=== PATIENT | male | born 1930 | race Two or more races ===

== ENCOUNTER 2018-08-08 10:48 | Emergency (ER) | payer MEDICARE ==
[2018-08-08 11:05] VITALS: BP 126/64
--- NOTE | 2018-08-08 11:32 | UC ---
FLU HPI - HPI Summary HPI Summary: 88-year-old male presents with 2 day history of nasal congestion, nasal discharge, mild sore throat, and occasionally productive cough for yellow sputum. States cough seems to worsen when he lies down at night. Denies fever , chills, ear pain, headache, dysphagia, chest pain, shortness of breath, abdominal pain, nausea, or vomiting. Patient states he is concerned he may have the flu. - History of Current Complaint Chief Complaint: UCRespiratory Stated Complaint: FLU SYMPTOMS Time Seen by Provider: 08/08/18 11:19 Hx Obtained From: Patient Pain Intensity: 5 - Allergy/Home Medications Allergies/Adverse Reactions: Allergies Allergy/AdvReac Type Severity Reaction Status Date / Time MS Ciprofloxacin [From Cipro] Allergy Hives Verified 03/17/16 09:03 PMH/Surg Hx/FS Hx/Imm Hx Endocrine History: Dyslipidemia Cardiovascular History: Hypertension - Surgical History Surgical History: Yes Surgery Procedure, Year, and Place[place] [facility] [place] [facility] [place] CYSTOSCOPY BILATERAL RETROGRADE, LEFT URETEROSCOPY, [place] URETERAL ST[place] [facility] [place] problem[place]had readiation. 2004 [place] [facility] [place] 2009 RIGHT CARPAL TUNNEL RELEASE, RIGHT RING FINGER TRIGGER [place] [facility] [place] - Family History Known Family History: Positive: Cardiac Disease, Other - Stroke - Social History Occupation: Retired Lives: With Family Alcohol Use: None Alcohol Amount: GLASS OF WINE ONCE A WEEK Substance Use Type: None Smoking Status (MU): Former Smoker Type: Cigarettes Have You Smoked in the Last Year: No When Did the Patient Quit Smoking/Using Tobacco: 45 YEARS AGO Review of Systems All Other Systems Reviewed And Are Negative: Yes Constitutional: Negative: Fever, Chills Eyes: Negative: Drainage, Eye Redness ENT: Positive: Sore Throat, Nasal Discharge, Sinus Congestion. Negative: Ear Ache, Sinus Pain/Tenderness Respiratory: Positive: Cough. Negative: Shortness Of Breath Cardiovascular: Negative: Palpitations, Chest Pain Gastrointestinal: Negative: Abdominal Pain, Vomiting, Diarrhea, Nausea Is Patient Immunocompromised?: No Physical Exam - Summary Physical Exam Summary: GENERAL APPEARANCE: Well developed, well nourished, alert and cooperative, and appears to be in no acute distress. EYES: Conjunctiva clear. No discharge. Vision is grossly intact. EARS: Bilateral external auditory canals with excessive cerumen. TMs not visualized. NOSE: Mild-moderate nasal congestion with some yellow nasal discharge. Sinuses nontender. THROAT: Oral cavity and pharynx normal. No inflammation, swelling, exudate, or lesions. NECK: Neck supple, non-tender without lymphadenopathy. CARDIAC: Normal S1 and S2. No S3, S4 or murmurs. Rhythm is regular. There is no peripheral edema, cyanosis or pallor. Extremities are warm and well perfused. Capillary refill is less than 2 seconds. LUNGS: Clear to auscultation and percussion without rales, rhonchi, wheezing or diminished breath sounds. ABDOMEN: Positive bowel sounds. Soft, nondistended, nontender. No guarding or rebound. No masses or hepatosplenomegally. MUSKULOSKELETAL: ROM intact to all extremities. No joint erythema or tenderness. Normal muscular development. Normal gait. SKIN: Skin normal color, texture and turgor with no lesions or eruptions. Triage Information Reviewed: Yes Vital Signs: Initial Vital Signs Temp 98.3 F 08/08/18 11:00 Pulse 78 08/08/18 11:00 Resp 18 08/08/18 11:00 BP 126/64 08/08/18 11:00 Pulse Ox 97 08/08/18 11:00 Vital Signs Reviewed: Yes Diagnostics - Laboratory Diagnostic Studies Completed/Ordered: Rapid flu negative. Flu Course/Dx - Course Course Of Treatment: 88-year-old male presents with 2 day history of nasal congestion, nasal discharge, mild sore throat, and occasionally productive cough for yellow sputum. States cough seems to worsen when he lies down at night. Denies fever, chills, ear pain, headache, dysphagia, chest pain, shortness of breath, abdominal pain, nausea, or vomiting. Patient states he is concerned he may have the flu. Afebrile. Vital signs stable. Exam revealed mild to moderate nasal congestion with mucosal erythema and mild edema, mild pharyngeal erythema with cobblestoning, clear bilateral breath sounds. Cough was not observed and remainder of exam was unremarkable. Rapid influenza was negative. Suspect viral upper respiratory infection. Recommend symptomatic treatment. Will provide prescriptions for fluticasone nasal spray and Tessalon Perles. He is to follow-up with his primary care provider in 5 days if symptoms persist. Warning symptoms were discussed with the patient. He verbalizes understanding and agrees with plan of care. - Differential Dx/Diagnosis Differential Diagnosis/HQI/PQRI: Bronchitis, Influenza, Pneumonia, Upper Respiratory Infection Provider Diagnosis: Viral URI with cough Discharge - Sign-Out/Discharge Documenting (check all that apply): Patient Departure All imaging exams completed and their final reports reviewed: No Studies - Discharge Plan Condition: Stable Disposition: HOME Prescriptions: Benzonatate CAP* [Tessalon 100 MG CAP*] 100 mg PO TID PRN #21 cap PRN Reason: Cough Fluticasone NASAL SPRAY 50MCG* [Flonase NASAL SPRAY 50MCG*] 2 spray BOTH NARES DAILY #1 btl Patient Education Materials: Upper Respiratory Infection (ED) Referrals: Mahamed Doty MD [Primary Care Provider] - 5 Days Additional Instructions: The rapid flu test performed in the clinic today was negative for the flu. Your history and exam are consistent with a viral upper respiratory infection. Viral infections do not respond to antibiotics and are limited to the treatment of symptoms. Viral infections typically run their course in 7-10 days. Drink plenty of fluids to avoid dehydration especially if you are running any fever. Use fluticasone (Flonase) nasal spray 2 sprays each nostril once daily. Take Tessalon Perles 1 capsule every 8 hours as needed for cough. Take over the counter acetaminophen (Tylenol) according to directions as needed for pain or fever. Use salt water gargles several times a day if you have a sore throat. Follow up with your primary care provider in 5 days if symptoms persist. Seek immediate medical attention in the emergency room if you have fever greater than 100.5 F despite taking acetaminophen or ibuprofen, have chest pain , difficulty breathing, are unable to swallow, or have any worsening of symptoms. - Billing Disposition and Condition Condition: STABLE Disposition: Home
== END 2018-08-08 12:15 | disposition home or self-care (01) ==
LOC: UCEAST 10:48
DX: J06.9 Acute upper respiratory infection, unspecified (principal); R05 Cough; I10 Essential (primary) hypertension; Z88.1 Allergy status to other antibiotic agents; Z87.891 Personal history of nicotine dependence
CPT/HCPCS: 99212; G0463

== ENCOUNTER 2018-10-28 19:26 | Inpatient (IN) | payer MEDICARE ==
[2018-10-28] MEDS ORDERED: Furosemide IV* 10 MG/ML VIAL (40 MG) IV ONE (19:40)
--- OUTSIDE RECORDS SUMMARY | 2018-10-28 19:47 | XMS REPORT | Continuity of Care Document ---
:1930 External Reference #:[id number] Author Name YOSHI Farrar Address [address] [place] [address] Care Team Providers Name Role Phone Mahamed Doty MD Care Team Information Contract Accountant Unavailable Mahamed Doty MD Primary Care Physician Unavailable Payers Date Identification Numbers Payment Provider Subscriber Effective: Policy Number: [id number] Medicare [place] Fermin Mercer 1995 PayID: [id number] [address] [place] [address] Policy Number: [id number] [address] [place] [address] Health Care Options Fermin Mercer PayID: [id number] [address] [place] [address] Advance Directives Description No Information Available Problems Date Description Provider Status Onset: 10/06/2018 Hypothyroidism Mahamed Doty M.D. Active Onset: 03/16/2017 Mixed hyperlipidemia Mahamed Doty M.D. Active Onset: 03/16/2017 Essential hypertension Mahamed Doty M.D. Active Family History Date Family Member(s) Observation Comments First Brother Heart Disease Social History Type Date Description Comments Sex Unknown Marital Status . 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 Tobacco Use Start: Unknown Nonsmoker Allergies, Adverse Reactions, Alerts Description No Known Drug Allergies Medications Medication Date Status Form Strength Qnty SIG Indications Ordering Provider Levothyroxine 10/07/ Active Tablets 25mcg 90tab 1 by Mahamed Olivas 2018 s mouth Darlow, every M.D. day Cyclobenzaprine 07/16/ Active Tablets 5mg 20tab 1by M54.5 Pamela HCL 2016 s mouth at Jose, bedtime CONTACT [employer] SU[employer] as needed Refresh Optive 07/16/ Active Solution 0.5-0.9% 1box 1 qtt in 2016 each eye Jose, prn for [employer] dryness Mirtazapine 05/11/ Active Tablets 15mg 30tab 1 by G47.00 Mahamed A. 2016 s mouth at Darlow, bedtime M.D. Iron / Active Tablets 325(65Fe) 1 tab by Unknown 0000 mg mouth once a day Centrum Silver / Active Tablets one by Unknown 0000 mouth Klor-Con / Active Tablets ER 8Meq 450ta Take 5 Mahamed A. 0000 bs Tablets Darlow, By Mouth M.D. Daily Amlodipine / Active Tablets 10mg 90tab Take 1 Mahamed A. Besylate 0000 s Tablet Darlow, By Mouth M.D. Daily Atorvastatin / Active Tablets 20mg 90tab take 1 Mahamed A. Calcium 0000 s tablet Darlow, by mouth M.D. every day Benzonatate / Active Capsules 100mg take one Unknown 0000 capsule by mouth three times a day as needed for cough Fluticasone / Active Suspension 50mcg/Act 2 sprays Unknown Propionate 0000 each nostril every night at bedtime Cefuroxime Axetil 08/11/ Hx Tablets 500mg 20tab 1 by J20.9 Mahamed A. 2018 - s mouth Darlow, 08/21/ twice a M.D. 2019 day Mirtazapine 05/11/ Hx Tablets 7.5mg 30tab /2 G47.00 Mahamed A. 2016 - s tablet Darlow, 05/11/ by mouth M.D. 2016 every night Mirtazapine 02/11/ Hx Tablets 7.5mg 30tab /2 G47.00 Radha 2017 - s tablet Bruce, 03/16/ by mouth [employer]CT [employer] 2017 every night Immunizations CPT Code Status Date Vaccine Lot # [id number] Given 06/03/2018 High-Dose, Influenza Virus Vacccine-fluzone 65 and [id number] older [id number] Given 05/11/2017 High-Dose, Influenza Virus Vacccine-fluzone 65 and [id number] older Vital Signs Date Vital Result Comment 10/21/2018 3:37pm BP Systolic 158 mmHg BP Diastolic 80 mmHg Heart Rate 100 /min Body Temperature 97.5 F Respiratory Rate 22 /min O2 % BldC Oximetry 97 % Ra Weight 164.00 lb 10/06/2018 1:18pm BP Systolic 136 mmHg BP Diastolic 82 mmHg Heart Rate 60 /min Body Temperature 97.5 F Respiratory Rate 16 /min Height 64.5 inches 5'4.50" Weight 159.00 lb BMI (Body Mass Index) 26.9 kg/m2 08/11/2018 8:49am BP Systolic 162 mmHg BP Diastolic 80 mmHg Heart Rate 78 /min Body Temperature 97.7 F Respiratory Rate 18 /min O2 % BldC Oximetry 98 % Height 64.5 inches 5'4.50" Weight 151.00 lb BMI (Body Mass Index) 25.5 kg/m2 11/26/2017 6:29pm BP Systolic 134 mmHg BP Diastolic 80 mmHg Heart Rate 68 /min Body Temperature 98.2 F Respiratory Rate 16 /min Height 64.5 inches 5'4.50" Weight 156.00 lb BMI (Body Mass Index) 26.4 kg/m2 11/23/2017 1:23pm BP Systolic 140 mmHg BP Diastolic 80 mmHg Heart Rate 72 /min Body Temperature 97.2 F Respiratory Rate 16 /min Height 64.5 inches 5'4.50" Weight 156.00 lb BMI (Body Mass Index) 26.4 kg/m2 07/16/2017 2:45pm BP Systolic 152 mmHg BP Diastolic 84 mmHg Heart Rate 60 /min Body Temperature 97.9 F Respiratory Rate 16 /min Height 64.5 inches 5'4.50" Weight 156.38 lb BMI (Body Mass Index) 26.4 kg/m2 04/29/2017 1:19pm BP Systolic 142 mmHg BP Diastolic 76 mmHg Heart Rate 56 /min Body Temperature 98.0 F Respiratory Rate 16 /min Height 64.5 inches 5'4.50" Weight 162.50 lb BMI (Body Mass Index) 27.5 kg/m2 03/16/2017 2:02pm BP Systolic 130 mmHg BP Diastolic 80 mmHg Heart Rate 60 /min Body Temperature 97.8 F Respiratory Rate 16 /min Height 64.5 inches 5'4.50" Weight 161.00 lb BMI (Body Mass Index) 27.2 kg/m2 02/11/2017 1:51pm BP Systolic 142 mmHg BP Diastolic 84 mmHg Heart Rate 84 /min Body Temperature 98.6 F Height 64.5 inches 5'4.50" Weight 162.38 lb BMI (Body Mass Index) 27.4 kg/m2 Results Test Date Facility Test Result H/L Range Note Laboratory test 10/21/2018 [facility] Medicine Brain Natural 349 pg/mL High < 100 finding (607)- - Peptide Laboratory test 10/21/2018 [facility] C-Reactive <pending> finding [address] [facility] Protein, [place] [address] (607)- - Lipid Profile 10/06/2018 Philipp Yolis ([facility]) Cholesterol 145 mg/dL 120- 200 Triglycerides 48 mg/dL 30-200 HDL Cholesterol 54 mg/dL 30-70 LDL (Calculated) 81 CALC 0-129 VLDL Cholesterol 10 mg/dL 0-50 HDL Risk Factor 2.7 CALC 0.0-4.4 Comprehensive Metabolic 10/06/2018 Philipp Yolis ([facility]) Sodium 140 mEq/L 134-149 Prof Potassium 4.0 mEq/L 3.6-5.5 Chloride 102 mEq/L 94-112 Carbon Dioxide 27 mEq/L 21-32 Glucose 95 mg/dL 70-105 BUN 15 mg/dL 6-26 Creatinine 0.8 mg/dL 0.6-1.4 BUN/Creat Ratio 18.8 CALC 8.0-36.0 Calcium 8.6 mg/dL 8.6-10.2 Total Protein 6.8 g/dL 6.4-8.3 Albumin 4.5 g/dL 3.8-5.5 Globulin 2.3 g/dL 2.0-4.8 A/G Ratio 2.0 CALC 0.6-2.3 Alk. Phosphatase 66 U/L 22-95 Alt (SGPT) 21 U/L 7-35 Ast (Sgot) 24 U/L 5-34 Total Bilirubin 1.1 mg/dL 0.2-1.3 GFR Non- >60 ml/min/1.73m^ >=60 GFR >60 ml/min/1.73m^ >=60 Laboratory test 10/06/2018 Philipp Yolis ([facility]) TSH 11.85 mIU/L High 0.50 -6.00 1 finding PSA 0.2 ng/mL 0.0-4.0 CBC Electronic [facility] 10/06/2018 Segal Yolis ([facility]) WBC 4.9 x10^3/UL 4.0- 10.0 RBC 3.87 x10^6/UL Low 3.93-6.00 HGB 12.0 g/dL 12.0-17.0 HCT 37 % 35-50 MCV 95.1 fL High 80.0-95.0 MCH 31.0 pg 25.6-32.2 MCHC 32.6 g/dL 32.2-36.0 RDW-CV 14.8 % High 11.6-14.4 PLT 169 x10^3/UL 163-400 MPV 11.3 fL 9.4-12.4 Srinivas# 3.32 x10^3/UL 1.56-6.13 Lymph# 1.00 x10^3/UL Low 1.18-3.74 Norman# 0.35 x10^3/UL 0.24-0.82 Eos # 0.2 x10^3/UL 0.0-0.5 Baso # 0.04 x10^3/UL 0.01-0.08 Srinivas% 67.9 % 34.0-70.0 Lymph % 20.4 % 20.0-52.0 Norman% 7.2 % 5.0-12.0 Eos% 3.7 % 0.7-7.0 Baso% 0.8 % 0.1-1.2 Laboratory test 10/06/2018 Segal Yolis ([facility]) Free T4 1.00 ng/dL 0.75- 1.54 finding Rapid Influenza A 08/08/2018 [facility] [place] Influenza A NEGATIVE Negative 2 & B Molecular Molecular Influenza B Molecular NEGATIVE Negative Laboratory test finding 04/26/2018 [facility] [place] PSA Diagnostic 0.332 ng/mL N 0- 4.0 3 Creatinine 04/26/2018 [facility] [place] Creatinine 1.09 mg/dL N 0.67-1.17 Egfr Non- 63.8 >60 Egfr 77.3 >60 4 Laboratory test 04/26/2018 [facility] [place] Blood Urea 17 mg/dL N 6-24 finding Nitrogen BUN Laboratory test 11/23/2017 Segal Yolis ([facility]) TSH 12.15 mIU/L High 0.50 -6.00 5 finding Comprehensive 07/16/2017 Segal Yolis ([facility]) Sodium 139 mEq/L 134-149 Metabolic Prof Potassium 3.6 mEq/L 3.6-5.5 Chloride 105 mEq/L 94-112 Carbon Dioxide 27 mEq/L 21-32 Glucose 110 mg/dL High 70-105 6 BUN 19 mg/dL 6-26 Creatinine 0.8 mg/dL 0.6-1.4 BUN/Creat Ratio 23.8 CALC 8.0-36.0 Calcium 9.3 mg/dL 8.6-10.2 Total Protein 7.2 g/dL 6.4-8.3 Albumin 4.6 g/dL 3.8-5.5 Globulin 2.6 g/dL 2.0-4.8 A/G Ratio 1.8 CALC 0.6-2.3 Alk. Phosphatase 79 U/L 22-95 Alt (SGPT) 10 U/L 7-35 Ast (Sgot) 15 U/L 5-34 Total Bilirubin 0.9 mg/dL 0.2-1.3 GFR Non- >60 ml/min/1.73m^ >=60 GFR >60 ml/min/1.73m^ >=60 Laboratory test 07/16/2017 Philipp Lagos ([facility]) TSH 11.87 mIU/L High 0.50 -6.00 7 finding Free T4 0.82 ng/dL 0.75-1.54 Complete Blood Count 07/16/2017 Philipp Lagos ([facility]) WBC 5.5 x10^3/UL 3.6-9.6 RBC 4.28 x10^6/UL 3.90-5.70 HGB 13.3 g/dL 12.1-17.2 HCT 40 % 36-50 MCV 92.0 fL 82.2-97.4 MCH 31.1 pg 27.6-33.3 MCHC 33.6 g/dL 33.0-35.5 RDW 14.8 % High 11.6-13.7 PLT 220 x10^3/UL 150-400 MPV 7.9 fL 7.4-10.4 Gran # 4.0 x10^3/UL 1.5-7.2 Lymph# 1.3 x10^3/UL 0.7-4.9 Norman# 0.2 x10^3/UL 0.1-0.9 Gran % 71.7 % 42.2-75.2 Lymph % 23.9 % 20.5-51.1 Norman% 4.4 % 1.7-9.3 Laboratory test finding 04/29/2017 Philipp Lagos ([facility]) PSA 0.2 ng/mL 0.0-4.0 Comprehensive Metabolic 03/16/2017 Philipp Lagos ([facility]) Sodium 141 mEq/L 134-149 Prof Potassium 3.9 mEq/L 3.6-5.5 Chloride 100 mEq/L 94-112 Carbon Dioxide 25 mEq/L 21-32 Glucose 131 mg/dL High 70-105 8 BUN 19 mg/dL 6-26 Creatinine 0.9 mg/dL 0.6-1.4 BUN/Creat Ratio 21.1 CALC 8.0-36.0 Calcium 9.2 mg/dL 8.6-10.2 Total Protein 6.6 g/dL 6.4-8.3 Albumin 4.6 g/dL 3.8-5.5 Globulin 2.0 g/dL 2.0-4.8 A/G Ratio 2.3 CALC 0.6-2.3 Alk. Phosphatase 56 U/L 22-95 Alt (SGPT) 9 U/L 7-35 Ast (Sgot) 16 U/L 5-34 Total Bilirubin 0.6 mg/dL 0.2-1.3 GFR Non- >60 ml/min/1.73m^ >=60 GFR >60 ml/min/1.73m^ >=60 Lipid Profile 03/16/2017 Philipp Lagos ([facility]) Cholesterol 149 mg/dL 120- 200 Triglycerides 97 mg/dL 30-200 HDL Cholesterol 44 mg/dL 30-70 LDL (Calculated) 86 CALC 0-129 VLDL Cholesterol 19 mg/dL 0-50 HDL Risk Factor 3.4 CALC 0.0-4.4 Complete Blood Count 03/16/2017 Philipp Lagos ([facility]) WBC 5.0 x10^3/UL 3.6-9.6 RBC 4.13 x10^6/UL 3.90-5.70 HGB 12.9 g/dL 12.1-17.2 HCT 38 % 36-50 MCV 92.0 fL 82.2-97.4 MCH 31.2 pg 27.6-33.3 MCHC 34.1 g/dL 33.0-35.5 RDW 15.0 % High 11.6-13.7 PLT 189 x10^3/UL 150-400 MPV 7.4 fL 7.4-10.4 Gran # 3.5 x10^3/UL 1.5-7.2 Lymph# 1.3 x10^3/UL 0.7-4.9 Norman# 0.2 x10^3/UL 0.1-0.9 Gran % 68.1 % 42.2-75.2 Lymph % 26.5 % 20.5-51.1 Norman% 5.4 % 1.7-9.3 1 RESULTS VERIFIED BY REPEAT ANALYSIS 2 Lye Treater: [id number] 3 Serum levels of PSA measured using the [employer] DXI Hybritech immunoassay should not be interpreted as absolute evidence of the presence or absence of disease. The PSA value should be used in conjunction with other pertinent clinical diagnostic procedures. A PSA value in the range of 0.1 to 0.6 ng/ml is indeterminate if being used as an indicator of recurrent or residual disease. The values obtained with different assay methods or kits cannot be used interchangeably. 4 Because ethnic data is not always readily available, this report includes an eGFR for both -Americans and non- Americans. The National Kidney Disease Education Program (NKDEP) does not endorse the use of the MDRD equation for patients that are not between the ages of 18 and 70, are , have extremes of body size, muscle mass, or nutritional status, or are non- or non-. According to the National Kidney Foundation, irrespective of diagnosis, the stage of the disease is based on the level of kidney function: Stage Description GFR(mL/min/1.73 m(2)) 1 Kidney damage with normal or decreased GFR 90 2 Kidney damage with mild decrease in GFR 60-89 3 Moderate decrease in GFR 30-59 4 Severe decrease in GFR 15-29 5 Kidney failure <15 (or dialysis) 5 RESULTS VERIFIED BY REPEAT ANALYSIS 6 NON-FASTING 7 RESULTS VERIFIED BY REPEAT ANALYSIS 8 RESULTS VERIFIED BY REPEAT ANALYSIS Procedures Date Code Description Status 08/11/2018 84906 Pulse Oximetry Completed 08/10/2012 37897114 Colonoscopy Completed Encounters Type Date Location Provider Dx Diagnosis Office Visit 08/11/2018 [facility] Office Mahamed Doty, J20.9 Acute bronchitis, 9:10a M.D. unspecified Office Visit 11/26/2017 [facility] Mahamed Doty, E03.9 Hypothyroidism, 6:40p M.D. unspecified Office Visit 11/23/2017 [facility] Mahamed Doty, E03.9 Hypothyroidism, 1:40p M.D. unspecified Office Visit 07/16/2017 [facility] Pamela Garcia, [employer]TA[employer]PER[employer]OR M54.5 Low back pain 2:30p R63.4 Abnormal weight loss Office Visit 03/16/2017 2:30p [facility] Mahamed Pulliam [id number] Essential ( primary) Lashonda Doty hypertension E78.2 Mixed hyperlipidemia Office Visit 02/11/2017 2:00p [facility] Office Radha C61 Malignant Bruce, YOSHI neoplasm of prostate F41.9 Anxiety disorder, unspecified G47.00 Insomnia, unspecified J30.9 Allergic rhinitis, unspecified R35.0 Frequency of micturition R60.0 Localized edema R06.83 Snoring Plan of Treatment 10/21/2018 - Radha Barrera, FNPR60.0 Localized edemaComments:STOP the LEVOTHYROXINE -- consider this on hold only, I expect to restart promptlyI will call in 24-48 hours with results, you will know by then if the swelling improved , and we will shbxtyuQ02.9 Hypothyroidism, [id number] Palpitations
--- OUTSIDE RECORDS SUMMARY | 2018-10-28 19:47 | XMS REPORT | Continuity of Care Document ---
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 Active Onset: 03/16/2017 Mixed hyperlipidemia Mahamed Doty M.D. Active Onset: 10/06/2018 Hypothyroidism Mahamed Doty M.D. Active Family History Date Family Member(s) Observation Comments First Brother Heart Disease Social History Type Date Description Comments Sex Unknown Marital Status . 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 Tobacco Use Start: Unknown Nonsmoker Allergies, Adverse Reactions, Alerts Description No Known Drug Allergies Medications Medication Date Status Form Strength Qnty SIG Indications Ordering Provider Levothyroxine 10/07/ Active Tablets 25mcg 90tab 1 by Mahamed Olivas 2018 s mouth Darlow, every M.D. day Cyclobenzaprine 07/16/ Active Tablets 5mg 20tab 1by M54.5 Pamela HCL 2016 s mouth at Jose, bedtime ORAL PATHOLOGIST as needed Refresh Optive 07/16/ Active Solution 0.5-0.9% 1box 1 qtt in 2016 each eye Jose, prn for ORAL PATHOLOGIST dryness Mirtazapine 05/11/ Active Tablets 15mg 30tab [...] - s tablet Bruce, 03/16/ by mouth ORAL PATHOLOGIST 2017 every night Immunizations CPT Code Status Date Vaccine Lot # [id number] Given 06/03/2018 High-Dose, Influenza Virus Vacccine-fluzone 65 and [id number] older [id number] Given 05/11/2017 High-Dose, Influenza Virus Vacccine-fluzone 65 and [id number] older Vital Signs Date Vital Result Comment 10/28/2018 6:17pm BP Systolic 152 mmHg BP Diastolic 72 mmHg Heart Rate 68 /min Body Temperature 96.7 F Respiratory Rate 16 /min O2 % BldC Oximetry 98 % Weight 161.00 lb 10/21/2018 3:37pm BP Systolic 158 mmHg BP [...] Result H/L Range Note Laboratory test 10/21/2018 [facility] Brain Natural 349 pg/mL High < 100 finding (607)- - Peptide Laboratory test 10/21/2018 [facility] C-Reactive 4.9 mg/L 0.0-4.9 1 finding [address] [facility], [place] [address] Quant (607)- - Comprehensive 10/21/2018 Philipp Yolis ([facility]) Sodium 141 mEq/L 134-149 Metabolic Prof Potassium 3.7 mEq/L 3.6-5.5 Chloride 102 mEq/L 94-112 Carbon Dioxide 25 mEq/L 21-32 Glucose 129 mg/dL High 70-105 BUN 13 mg/dL 6-26 Creatinine 0.8 mg/dL 0.6-1.4 BUN/Creat Ratio 16.3 CALC 8.0-36.0 Calcium 8.6 mg/dL 8.6-10.2 Total Protein 6.6 g/dL 6.4-8.3 Albumin 4.5 g/dL 3.8-5.5 Globulin 2.1 g/dL 2.0-4.8 A/G Ratio 2.1 CALC 0.6-2.3 Alk. Phosphatase 76 U/L 22-95 Alt (SGPT) 35 U/L 7-35 Ast (Sgot) 28 U/L 5-34 Total Bilirubin 0.8 mg/dL 0.2-1.3 GFR Non- >60 ml/min/1.73m^ >=60 GFR >60 ml/min/1.73m^ >=60 Lipid Profile 10/06/2018 Philipp Yolis ([facility]) Cholesterol 145 mg/dL 120- 200 Triglycerides 48 mg/dL 30-200 HDL Cholesterol 54 mg/dL 30-70 LDL (Calculated) 81 CALC 0-129 VLDL Cholesterol 10 mg/dL 0-50 HDL Risk Factor 2.7 CALC 0.0-4.4 Comprehensive Metabolic 10/06/2018 Philipp Yolis ([facility]) Sodium 140 mEq/L 134-149 Prof Potassium 4.0 [...] GFR >60 ml/min/1.73m^ >=60 Laboratory test 10/06/2018 Segal Yolis ([facility]) TSH 11.85 mIU/L High 0.50 -6.00 2 finding PSA 0.2 ng/mL 0.0-4.0 CBC Electronic a 10/06/2018 Segal Yolis ([facility]) WBC 4.9 x10^3/UL 4.0- 10.0 RBC 3.87 x10^6/UL Low 3.93-6.00 HGB 12.0 g/dL 12.0-17.0 HCT 37 % 35-50 MCV 95.1 fL High 80.0-95.0 MCH 31.0 pg 25.6-32.2 MCHC 32.6 g/dL 32.2-36.0 RDW-CV 14.8 % High 11.6-14.4 PLT 169 x10^3/UL 163-400 MPV 11.3 fL 9.4-12.4 Srinivas# 3.32 x10^3/UL 1.56-6.13 Lymph# 1.00 x10^3/UL Low 1.18-3.74 [place]# 0.35 x10^3/UL 0.24-0.82 Eos # 0.2 x10^3/UL 0.0-0.5 Baso # 0.04 x10^3/UL 0.01-0.08 Srinivas% 67.9 % 34.0-70.0 Lymph % 20.4 % 20.0-52.0 [place]% 7.2 % 5.0-12.0 Eos% 3.7 % 0.7-7.0 Baso% 0.8 % 0.1-1.2 Laboratory test 10/06/2018 Segal Yolis ([facility]) Free T4 1.00 ng/dL 0.75- 1.54 finding Rapid Influenza A 08/08/2018 [facility] [place] Influenza A NEGATIVE Negative 3 & B Molecular Molecular Influenza B Molecular NEGATIVE Negative Laboratory test finding 04/26/2018 [facility] PSA Diagnostic 0.332 ng/mL N 0- 4.0 4 Creatinine 04/26/2018 [facility] Creatinine 1.09 mg/dL N 0.67-1.17 Egfr Non- 63.8 >60 Egfr 77.3 >60 5 Laboratory test 04/26/2018 [facility] Blood Urea 17 mg/dL N 6-24 finding Nitrogen BUN Laboratory test 11/23/2017 Segal Yolis (a) TSH 12.15 mIU/L High 0.50 -6.00 6 finding Comprehensive 07/16/2017 Segal Yolis ([facility]) Sodium 139 mEq/L 134-149 Metabolic Prof Potassium 3.6 mEq/L 3.6-5.5 Chloride 105 mEq/L 94-112 Carbon Dioxide 27 mEq/L 21-32 Glucose 110 mg/dL High 70-105 7 BUN 19 mg/dL 6-26 Creatinine 0.8 mg/dL [...] >60 ml/min/1.73m^ >=60 Laboratory test 07/16/2017 Philipp Yolis ([facility]) TSH 11.87 mIU/L High 0.50 -6.00 8 finding Free T4 0.82 ng/dL 0.75-1.54 Complete Blood Count 07/16/2017 Philipp Yolis ([facility]) WBC 5.5 x10^3/UL 3.6-9.6 RBC 4.28 x10^6/UL 3.90-5.70 HGB 13.3 g/dL 12.1-17.2 HCT 40 % 36-50 MCV 92.0 fL 82.2-97.4 MCH 31.1 pg 27.6-33.3 MCHC 33.6 g/dL 33.0-35.5 RDW 14.8 % High 11.6-13.7 PLT 220 x10^3/UL 150-400 MPV 7.9 fL 7.4-10.4 Gran # 4.0 x10^3/UL 1.5-7.2 Lymph# 1.3 x10^3/UL 0.7-4.9 [place]# 0.2 x10^3/UL 0.1-0.9 Gran % 71.7 % 42.2-75.2 Lymph % 23.9 % 20.5-51.1 [place]% 4.4 % 1.7-9.3 Laboratory test finding 04/29/2017 Philipp Yolis ([facility]) PSA 0.2 ng/mL 0.0-4.0 Comprehensive Metabolic 03/16/2017 Philipp Yolis ([facility]) Sodium 141 mEq/L 134-149 Prof Potassium 3.9 mEq/L 3.6-5.5 Chloride 100 mEq/L 94-112 Carbon Dioxide 25 mEq/L 21-32 Glucose 131 mg/dL High 70-105 9 BUN 19 mg/dL 6-26 Creatinine 0.9 mg/dL [...] ml/min/1.73m^ >=60 Lipid Profile 03/16/2017 Philipp Lagos (a) Cholesterol 149 mg/dL 120- 200 Triglycerides 97 mg/dL 30-200 HDL Cholesterol 44 mg/dL 30-70 LDL (Calculated) 86 CALC 0-129 VLDL Cholesterol 19 mg/dL 0-50 HDL Risk Factor 3.4 CALC 0.0-4.4 Complete Blood Count 03/16/2017 Philipp Lagos (a) WBC 5.0 x10^3/UL 3.6-9.6 RBC 4.13 x10^6/UL 3.90-5.70 HGB 12.9 g/dL 12.1-17.2 HCT 38 % 36-50 MCV 92.0 fL 82.2-97.4 MCH 31.2 pg 27.6-33.3 MCHC 34.1 g/dL 33.0-35.5 RDW 15.0 % High 11.6-13.7 PLT 189 x10^3/UL 150-400 MPV 7.4 fL 7.4-10.4 Gran # 3.5 x10^3/UL 1.5-7.2 Lymph# 1.3 x10^3/UL 0.7-4.9 [place]# 0.2 x10^3/UL 0.1-0.9 Gran % 68.1 % 42.2-75.2 Lymph % 26.5 % 20.5-51.1 [place]% 5.4 % 1.7-9.3 1 1 SST 2 RESULTS VERIFIED BY REPEAT ANALYSIS 3 Cut Out Operator: [id number] 4 Serum levels of PSA measured using the [employer] DXI Hybritech immunoassay should not be interpreted [...] methods or kits cannot be used interchangeably. 5 Because ethnic data is not always readily [...] 15-29 5 Kidney failure <15 (or dialysis) 6 RESULTS VERIFIED BY REPEAT ANALYSIS 7 NON-FASTING 8 RESULTS VERIFIED BY REPEAT ANALYSIS 9 RESULTS VERIFIED BY REPEAT ANALYSIS Procedures Date Code Description Status 10/28/2018 74889 Rhythm ECG W/Interpretation & Report Completed 08/11/2018 97143 Pulse Oximetry Completed 08/10/2012 76409869 Colonoscopy Completed Encounters Type Date Location Provider Dx Diagnosis Office Visit 10/21/2018 [facility] Radha Barrera, R60.0 Localized edema 3:30p ORAL PATHOLOGIST E03.9 Hypothyroidism, unspecified R00.2 Palpitations Office Visit 08/11/2018 9:10a [facility] Mahamed Pulliam J20.9 Acute bronchitisLalitha M.D. unspecified Office Visit 11/26/2017 6:40p [facility] Mahamed Pulliam E03.9 HypothyroidismLalitha M.D. unspecified Office Visit 11/23/2017 1:40p [facility] Mahamed Pulliam E03.9 Lalitha Eaton M.D. unspecified Office Visit 07/16/2017 2:30p [facility] Pamela Garcia, M54.5 Low back pain ORAL PATHOLOGIST R63.4 Abnormal weight loss Office Visit 03/16/2017 2:30p [facility] Mahamed Pulliam I10 Essential ( primary) Darlow, M.D. hypertension E78.2 Mixed hyperlipidemia Office Visit 02/11/2017 2:00p [facility] Radha C61 Malignant Bruce, ORAL PATHOLOGIST neoplasm of prostate F41.9 Anxiety disorder, unspecified G47.00 Insomnia, unspecified J30.9 Allergic rhinitis, unspecified R35.0 Frequency of micturition R60.0 Localized edema R06.83 Snoring Plan of Treatment 10/28/2018 - Lesia Aldridge, PAI50.9 Heart failure, unspecifiedComments:Patient to go to the ER via ambulance for heart failure management. Most recent BNP of 349 on 10/21/18. EKG in office shows Atrial Fibrillation which has not been noted in patient prior. Clinical picture and history correlate with heart failure. Dr. Doty consulted and gave report to Dr. Erickson of [facility] [place].R60.0 Localized edemaComments:see above. Patient sent to the ER.
--- NOTE | 2018-10-28 19:49 | ED ---
HPI Cardiac - History of Current Complaint Chief Complaint: EDGeneral Stated Complaint: POSS CHF PER EMS Time Seen by Provider: 10/28/18 19:32 Pain Intensity: 0 - Allergy/Home Medications Allergies/Adverse Reactions: Allergies Allergy/AdvReac Type Severity Reaction Status Date / Time ciprofloxacin Allergy Hives Verified 10/28/18 19:39 PMH/Surg Hx/FS Hx/Imm Hx Endocrine/Hematology History: Denies: Hx Diabetes, Hx Thyroid Disease Cardiovascular History: Reports: Hx Hypertension - CONTROL WITH MED, Other Cardiovascular Problems/Disorders - CHOLESTEROL CONTROL WITH MEDS Respiratory History: Reports: Hx Asthma - HX OF - NO PROBLEMS Denies: Hx Chronic Obstructive Pulmonary Disease (COPD) GI History: Denies: Hx Ulcer History: Reports: Other Problems/Disorders - URETHRAL STRICTURE Musculoskeletal History: Reports: Hx Arthritis, Other Musculoskeletal History - LEFT SHOULDER PAIN Denies: Hx Scoliosis Sensory History: Reports: Hx Contacts or Glasses - READING GLASSES Denies: Hx Hearing Aid Opthamlomology History: Reports: Hx Contacts or Glasses - READING GLASSES Neurological History: Denies: Hx Headaches, Other Neuro Impairments/Disorders Psychiatric History: Reports: Hx Anxiety - occasional - Cancer History Cancer Type, Location and Year: prostate ca - Surgical History Surgery Procedure, Year, and Place: [place] [facility] [place] [facility] [place] CYSTOSCOPY BILATERAL RETROGRADE, LEFT URETEROSCOPY, LEFT URETERAL STENT INSERTION, [facility] [place] problem[place]had readiation. 2004 LEFT KNEE ARTHROSCOPY, [facility] [place]. 2009 RIGHT CARPAL TUNNEL RELEASE, RIGHT RING FINGER TRIGGER RELEASE, [facility] [place] Hx Anesthesia Reactions: No Infectious Disease History: No Infectious Disease History: Denies: Hx Clostridium Difficile, Hx Hepatitis, Hx Human Immunodeficiency Virus (HIV), Hx of Known/Suspected MRSA, Hx Shingles, Hx Tuberculosis, Hx Known/ Suspected VRE, Hx Known/Suspected VRSA, History Other Infectious Disease, Traveled Outside the [place] in Last 30 Days - Family History Known Family History: Positive: Cardiac Disease, Other - Stroke - Social History Alcohol Use: Weekly Alcohol Amount: GLASS OF WINE ONCE A WEEK Substance Use Type: Reports: None Smoking Status (MU): Former Smoker Type: Cigarettes Have You Smoked in the Last Year: No Physical Exam Vital Signs On Initial Exam: Initial Vitals Temp Pulse Resp BP Pulse Ox 99.1 F 83 18 170/101 96 10/28/18 19:30 10/28/18 19:30 10/28/18 19:30 10/28/18 19:30 10/28/18 19:30 Diagnostics - Vital Signs Vital Signs Temp Pulse Resp BP Pulse Ox 10/28/18 19:30 99.1 F 83 18 170/101 96 - Laboratory Lab Statement: Any lab studies that have been ordered have been reviewed, and results considered in the medical decision making process. Discharge - Discharge Plan Referrals: Mahamed Doty MD [Primary Care Provider] - - Attestation Statements Document Initiated by Scribe: Yes
[2018-10-28 19:58] LABS: ABS Basophils 0 10^3/ul (0-0.2); ABS Eosinophils 0.3 10^3/ul (0-0.6); ABS Lymphocytes 1.1 10^3/ul (1.0-4.8); ABS Monocytes 0.4 10^3/ul (0-0.8); ABS Neutrophils 3.2 10^3/ul (1.5-7.7); ABS Nucleated RBC 0 10^3/ul; Eosinophil % 5.3 %; Hematocrit 36 % (36-46); Lymphocyte % 21.6 %; Mean Corpuscular HGB Conc 33 g/dL (31-36); Mean Corpuscular Hemoglobin 31 pg (27-31); Mean Corpuscular Volume 93 fL (80-94); Mean Platelet Volume 9.1 fL (7.4-10.4); Nucleated Red Blood Cells % 0; Platelet Count 168 10^3/uL (150-450); Red Blood Count 3.86 10^6 /uL (4.18-5.48); Red Cell Distribution Width 16 % (10.5-15)
--- NOTE | 2018-10-28 20:00 | ED ---
Lower Extremity - HPI Summary HPI Summary: This patient is an 88 year old M brought in by ambulance to [facility] with a chief complaint of LE swelling bilaterally since 2 weeks ago. He has seen his PCP, Dr. Mahamed Doty, for the swelling in his LE bilaterally and crackles in lower lungs. Dr. Doty ran bloodwork and found irregularities, so he referred the patient to a machine taper. Patient was unable to schedule an appointment with the machine taper within the month, so he became scared when his legs felt worse at home. Patient reports pain in LE when ambulating and SOB. Patient denies chest pain. He has no PMHx of CHF. - History of Current Complaint Chief Complaint: EDGeneral Stated Complaint: POSS CHF PER EMS Time Seen by Provider: 10/28/18 19:32 Hx Obtained From: Patient Onset/Duration: Weeks - 2 weeks ago Pain Intensity: 0 Pain Scale Used: 0-10 Numeric Timing: Constant, Lasting Weeks - 2 weeks ago Associated Signs And Symptoms: Positive: Swelling Aggravating Factor(s): Ambulation Able to Bear Weight: Yes - Allergies/Home Medications Allergies/Adverse Reactions: Allergies Allergy/AdvReac Type Severity Reaction Status Date / Time ciprofloxacin Allergy Hives Verified 10/28/18 19:39 Home Medications: Home Medications Carboxymethylcellulos/Glycerin [Refresh Optive Eye Drops] 1 drop BOTH EYES DAILY PRN 10/28/18 [History Confirmed 10/28/18] Cyclobenzaprine TAB* [Flexeril 10 MG TAB*] 10 mg PO BEDTIME PRN 10/28/18 [ History Confirmed 10/28/18] Levothyroxine Sodium 25 mcg PO DAILY 10/28/18 [History Confirmed 10/28/18] Mirtazapine TAB* [Remeron TAB*] 15 mg PO BEDTIME 10/28/18 [History Confirmed ] PMH/Surg Hx/FS Hx/Imm Hx Endocrine/Hematology History: Denies: Hx Diabetes, Hx Thyroid Disease Cardiovascular History: Reports: Hx Hypertension - CONTROL WITH MED, Other Cardiovascular Problems/Disorders - CHOLESTEROL CONTROL WITH MEDS Respiratory History: Reports: Hx Asthma - HX OF - NO PROBLEMS Denies: Hx Chronic Obstructive Pulmonary Disease (COPD) GI History: Denies: Hx Ulcer History: Reports: Other Problems/Disorders - URETHRAL STRICTURE Musculoskeletal History: Reports: Hx Arthritis, Other Musculoskeletal History - LEFT SHOULDER PAIN Denies: Hx Scoliosis Sensory History: Reports: Hx Contacts or Glasses - READING GLASSES Denies: Hx Hearing Aid Opthamlomology History: Reports: Hx Contacts or Glasses - READING GLASSES Neurological History: Denies: Hx Headaches, Other Neuro Impairments/Disorders Psychiatric History: Reports: Hx Anxiety - occasional - Cancer History Cancer Type, Location and Year: prostate ca - Surgical History Surgery Procedure, Year, and Place: hernia repair, [facility] [place]. [place]parasite [place]" [facility] [place]. 2003 CYSTOSCOPY BILATERAL RETROGRADE, LEFT URETEROSCOPY, LEFT URETERAL STENT INSERTION, [facility] [place] prostate problem-had readiation. 2004 LEFT KNEE ARTHROSCOPY, [facility] [place]. 2009 RIGHT CARPAL TUNNEL RELEASE, RIGHT RING FINGER TRIGGER RELEASE, [facility] [place] Hx Anesthesia Reactions: No Infectious Disease History: No Infectious Disease History: Denies: Hx Clostridium Difficile, Hx Hepatitis, Hx Human Immunodeficiency Virus (HIV), Hx of Known/Suspected MRSA, Hx Shingles, Hx Tuberculosis, Hx Known/ Suspected VRE, Hx Known/Suspected VRSA, History Other Infectious Disease, Traveled Outside the [place] in Last 30 Days - Family History Known Family History: Positive: Cardiac Disease, Other - Stroke - Social History Alcohol Use: Weekly Alcohol Amount: GLASS OF WINE ONCE A WEEK Substance Use Type: Reports: None Smoking Status (MU): Former Smoker Type: Cigarettes Have You Smoked in the Last Year: No Review of Systems Positive: Shortness Of Breath, Other - Crackles in lower lungs Positive: Other - Swelling in bilateral LE. Pain in bilateral LE when ambulating. All Other Systems Reviewed And Are Negative: Yes Physical Exam - Summary Physical Exam Summary: VITAL SIGNS: Reviewed. GENERAL: Patient is a well-developed and nourished MALE who is lying comfortable in the stretcher. Patient is not in any acute respiratory distress. HEAD AND FACE: No signs of trauma. No ecchymosis, hematomas or skull depressions. No sinus tenderness. EYES: PERRLA, EOMI x 2, No injected conjunctiva, no nystagmus. EARS: Hearing grossly intact. Ear canals and tympanic membranes are within normal limits. MOUTH: Oropharynx within normal limits. NECK: Supple, trachea is midline, no adenopathy, JVD with 6cm bilateral distension, no carotid bruit, no c-spine tenderness, neck with full ROM. CHEST: Symmetric, no tenderness at palpation LUNGS: Clear to auscultation bilaterally. No wheezing or crackles. CVS: Regular rate, irregular rhythm, S1 and S2 present, no murmurs or gallops appreciated. ABDOMEN: Soft, non-tender. No signs of distention. No rebound no guarding, and no masses palpated. Bowel sounds are normal. EXTREMITIES: FROM in all major joints, no cyanosis or clubbing. 2+ bilateral pitting edema. NEURO: Alert and oriented x 3. No acute neurological deficits. Speech is normal and follows commands. SKIN: Dry and warm Triage Information Reviewed: Yes Vital Signs On Initial Exam: Initial Vitals Temp Pulse Resp BP Pulse Ox 99.1 F 83 18 170/101 96 10/28/18 19:30 10/28/18 19:30 10/28/18 19:30 10/28/18 19:30 10/28/18 19:30 Vital Signs Reviewed: Yes Diagnostics - Vital Signs Vital Signs Temp Pulse Resp BP Pulse Ox 10/28/18 19:30 99.1 F 83 18 170/101 96 - Laboratory Result Diagrams: 10/28/18 19:51 10/28/18 19:51 Lab Statement: Any lab studies that have been ordered have been reviewed, and results considered in the medical decision making process. - Radiology Chest X-Ray Radiology Interpretation Completed By: ED Physician Summary of Radiographic Findings: 20:30. Cardiomegaly, bilateral pulmonary congestion consistent with CHF. Pending official report. - EKG 19:55 Cardiac Rate: NL - 70 BPM EKG Rhythm: Atrial Fibrillation Ectopy: PVCs Summary of EKG Findings: q wave in inferior leads Lower Extremity Course/Dx - Course Course Of Treatment: This patient is an 88 year old M brought in by ambulance to [facility] with a chief complaint of LE swelling bilaterally since 2 weeks ago. EKG showed A Fib, 70 bpm, PVCs, q wave in inferior leads. CXR showed cardiomegaly, bilateral pulmonary congestion consistent with CHF. I spoke with Dr. Hermelinda Ray, hospitalist, who will admit the patient with a dx of CHF and A Fib. - Diagnoses Provider Diagnoses: CHF (congestive heart failure), Atrial fibrillation - Physician Notifications Discussed Care Of Patient With: Hermelinda Ray - Hospitalist Time Discussed With Above Provider: 20:48 Instructed by Provider To: Admit As Inpatient Discharge - Sign-Out/Discharge Documenting (check all that apply): Patient Departure - Admit Patient Received Moderate/Deep Sedation with Procedure: No - Discharge Plan Condition: Stable Disposition: ADMITTED TO [facility] Referrals: Mahamed Doty MD [Primary Care Provider] - - Attestation Statements Document Initiated by Scribe: Yes Documenting Scribe: Chris Hawk Provider For Whom Scribe is Documenting (Include Credential): Aaliyah Domínguez MD Scribe Attestation: Chris Lovelace, scribed for Aaliyah Domínguez MD on 10/28/18 at 2048. Status of Scribe Document: Ready
[2018-10-28 20:05] LABS: Activated Partial Thrombo Time 35.4 seconds (26.0-36.3); INR 1.24 (0.77-1.02)
[2018-10-28 20:17] LABS: ALT 21 U/L (7-52); AST 23 U/L (13-39); Albumin 4.4 g/dL (3.2-5.2); Albumin/Globulin Ratio 1.8 (1-3); Alkaline Phosphatase 73 U/L (34-104); Anion Gap 7 mmol/L (2-11); BUN/Creatinine Ratio 17.3 (8-20); Blood Urea Nitrogen 14 mg/dL (6-24); CO2 Carbon Dioxide 29 mmol/L (22-32); Calcium 9.2 mg/dL (8.6-10.3); Chloride 103 mmol/L (101-111); EGFR African American 108.8 (>60); EGFR Non-African American 89.9 (>60); Globulin 2.5 g/dL (2-4); Glucose 110 mg/dL (70-100); Sodium 139 mmol/L (135-145); Total Protein 6.9 g/dL (6.4-8.9)
[2018-10-28 20:19] LABS: Troponin I 0.04 ng/mL (<0.04)
[2018-10-28] MEDS ORDERED: Enoxaparin(*) 60 MG/0.6 ML SYR SUBCUT ONE (20:32)
[2018-10-28 20:53] LABS: Urine Appearance Clear; Urine Bacteria Absent (Absent); Urine Bilirubin Negative (Negative); Urine Blood 2+ (Negative); Urine Color Straw; Urine Glucose Negative (Negative); Urine Ketones Negative (Negative); Urine Nitrite Negative (Negative); Urine Protein Negative (Negative); Urine Red Blood Cell 2+(6-10/hpf) (Absent); Urine Specific Gravity 1.006 (1.010-1.030); Urine Urobilinogen Negative (Negative); Urine White Blood Cell Trace(0-5/hpf) (Absent)
[2018-10-28] MEDS ORDERED: Acetaminophen TAB* 325 MG PO PRN (21:12)
[2018-10-28] MEDS ORDERED: Senna TAB PO PRN (21:12)
[2018-10-28] MEDS ORDERED: Ondansetron INJ* 2 MG/ML VIAL IV PRN (21:12)
[2018-10-28] MEDS ORDERED: Docusate CAP* 100 MG PO PRN (21:12)
[2018-10-28] MEDS ORDERED: Al Hydrox/Mg Hydrox/Simet LIQ* 30 ML UDC PO PRN (21:12)
[2018-10-28] MEDS ORDERED: Cyclobenzaprine TAB* 10 MG PO PRN ×2 (21:14→21:27)
[2018-10-28 21:53] LABS: Magnesium 1.8 mg/dL (1.9-2.7)
[2018-10-28 22:07] LABS: TSH (Thyroid Stimulating Horm) 10.78 mcIU/mL (0.34-5.60)
[2018-10-28 23:11] LABS: Troponin I 0.04 ng/mL (<0.04)
[2018-10-28] MEDS ORDERED: Magnesium Sulfate 1 GM IV* 1 GM/100 ML BAG IV ONE (23:14)
--- NOTE | 2018-10-28 23:16 | HP ---
CC: Dr. Mahamed Doty * HISTORY AND PHYSICAL: DATE OF ADMISSION: 10/28/18 TIME OF EVALUATION: 2100 PRIMARY CARE PHYSICIAN: Dr. Mahamed Doty. CHIEF COMPLAINT: Shortness of breath and lower extremity swelling. HISTORY OF PRESENT ILLNESS: This is an 88-year-old male with a past medical history of hypertension and hyperlipidemia who presented from his primary care office today after worsening shortness of breath and lower extremity swelling. He was seen in the office by Dr. Doty for progressive shortness of breath, orthopnea, and paroxysmal nocturnal dyspnea. He has also noticed lower extremity swelling. The swelling in his legs, he states, has been going on for the past 2 to 3 weeks and he states the shortness of breath is off and on with mucus, wheezing, and coughing. He has required more pillows at night and states he does wake up during the night acutely short of breath that is transient. No fever. He states he was sick over in July, but did get better from that point and was diagnosed with viral infection at that time. He denies any abdominal pain. No nausea, vomiting, or diarrhea. He states he does have urinary frequency. No dysuria, no fevers, no chills. Otherwise, review of systems is negative. In the emergency room, the patient had labs, imaging. He was given Lovenox 60 mg and Lasix 40 mg and referred to the hospitalist service for further evaluation. PAST MEDICAL HISTORY: 1. History of prostate cancer, status post radiation. 2. History of urethral stricture, followed by Dr. Ortiz. 3. Hypertension. 4. Hyperlipidemia. 5. Hypothyroidism. 6. Arthritis. 7. Chronic left shoulder pain. MEDICATIONS: 1. Synthroid 25 mcg daily. 2. Cyclobenzaprine 5 mg at bedtime as needed. 3. Mirtazapine 15 mg at bedtime. 4. Iron 325 mg daily. 5. Centrum Silver daily. 6. Klor-Con 8 mEq 5 tabs by mouth daily. 7. Amlodipine 10 mg daily. 8. Atorvastatin 20 mg daily. 9. Benzonatate 100 mg 3 times a day as needed for cough. 10. Flonase 2 sprays each nostril at night, at bedtime. ALLERGIES: CIPROFLOXACIN - develops hives. FAMILY HISTORY: Reviewed and noncontributory. SOCIAL HISTORY: The patient lives at home with his , who is his healthcare proxy. He is independent of his ADLs. 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 He quit smoking over 40 years ago. He states he has a small glass of wine most evenings. Code status: He states he is a DNR/DNI. MOLST form will be completed. REVIEW OF SYSTEMS: A 14-point review of systems as mentioned in the HPI; otherwise, negative. PHYSICAL EXAMINATION GENERAL: In no acute distress, resting comfortably. VITAL SIGNS: Temp is 99.1, pulse rate is 86, respiratory rate is 18, oxygen saturation 95% on room air, blood pressure 154/89. HEENT: Head: Normocephalic. Pupils equal and reactive, anicteric. Oropharynx : Mucous membranes moist. No erythema or exudate. NECK: Supple. No lymphadenopathy. CARDIAC: Irregularly irregular rate and rhythm. Soft systolic murmur heard throughout. RESPIRATORY: Bilateral crackles throughout. No increased work of breathing. ABDOMEN: Soft, nontender, and nondistended. EXTREMITIES: +1 pretibial edema, +1 DPs. NEUROLOGIC: Alert and oriented x3. No gross focal neurologic deficits. DIAGNOSTIC STUDIES/LAB DATA: Laboratory Data: White count is 5, hemoglobin 12, hematocrit 36, platelets 168. INR is 1.24. Sodium 139, potassium 4, chloride 103, bicarb 29, BUN 14, creatinine 0.81, glucose 110. Troponin 0.04, BNP is 633. UA is positive blood; otherwise, unremarkable. Radiographic Data: Chest x-ray shows cardiomegaly and pulmonary interstitial edema. EKG shows atrial fibrillation with PVCs. ASSESSMENT: This is an 88-year-old man with past medical history of hypertension and hyperlipidemia who presents to the emergency room from his primary care office with shortness of breath and lower extremity swelling, found to be in acute decompensated heart failure. 1. Acute decompensated heart failure. Assessment: The etiology could be triggered by new-onset atrial fibrillation, does not appear to be ischemia. He does not have any chest pain. His blood pressures are slightly elevated on arrival, but he is in no respiratory distress. Plan: We will continue him on Lasix 20 mg in the morning, gentle diuresis. We will start him on low-dose metoprolol and make sure he tolerates it. We will check his magnesium and thyroid. We will continue him on anticoagulation. We will start him on Eliquis in the morning. Recommend if his symptoms do not improve with diuresis to consider cardiology evaluation for cardioversion. We will continue to trend his troponin, check a lipid panel, and repeat his labs in the morning. Start low dose metoprolol to make sure he tolerates and titrate accordingly. 2. Chronic medical problems: Hypertension, we will start him on metoprolol and hold the amlodipine for now. Hypothyroidism, resume his Synthroid. Hyperlipidemia, continue his atorvastatin. 3. F[address]. [address] the patient on a low-salt diet. 4. DVT prophylaxis. The patient scores high risk. He was given Lovenox in the emergency room. We will transition him to Eliquis in the morning. 5. Code status. DNR/DNI. MOLST form will be completed. 6. Regarding his history of urethral stricture, Dr. Oritz knows this family very well and he clearly recommended no Ac catheter for this patient. I have relayed this in the system as well to the nurses. PATIENT TIME: Greater than 45 minutes was spent doing the history and physical , more than half the time spent in direct patient contact. [id number]/CPS #: [id number] MARIBEL
[2018-10-28] MEDS: Metoprolol Tartrate TAB* 25 MG PO SCH (23:54)
[2018-10-28] MEDS: Mirtazapine TAB* 15 MG PO SCH (23:56)
[2018-10-28] MEDS: Atorvastatin* 20 MG TAB PO SCH (23:57)
[2018-10-29 01:00] LABS: Free T4 0.99 ng/dL (0.61-1.12)
[2018-10-29] MEDS: Levothyroxine TAB* 25 MCG TAB PO SCH (05:41)
[2018-10-29 06:40] LABS: ABS Basophils 0 10^3/ul (0-0.2); ABS Eosinophils 0.2 10^3/ul (0-0.6); ABS Lymphocytes 0.9 10^3/ul (1.0-4.8); ABS Monocytes 0.3 10^3/ul (0-0.8); ABS Neutrophils 2.5 10^3/ul (1.5-7.7); ABS Nucleated RBC 0 10^3/ul; Eosinophil % 4.2 %; Hematocrit 35 % (36-46); Hemoglobin 11.7 g/dL (14.0-18.0); Lymphocyte % 23.2 %; Mean Corpuscular HGB Conc 34 g/dL (31-36); Mean Corpuscular Hemoglobin 31 pg (27-31); Mean Corpuscular Volume 93 fL (80-94); Mean Platelet Volume 8.9 fL (7.4-10.4); Nucleated Red Blood Cells % 0.1; Platelet Count 151 10^3/uL (150-450); Red Blood Count 3.79 10^6 /uL (4.18-5.48); Red Cell Distribution Width 16 % (10.5-15); White Blood Count 3.9 10^3/uL (3.5-10.8)
[2018-10-29 07:08] LABS: BUN/Creatinine Ratio 13.3 (8-20); Calcium 8.7 mg/dL (8.6-10.3); EGFR African American 105.8 (>60); EGFR Non-African American 87.4 (>60); HDL Cholesterol 47.2 mg/dL; Magnesium 1.8 mg/dL (1.9-2.7)
[2018-10-29] MEDS ORDERED: Magnesium Sulfate 2 GM IV* 2 GM/50 ML BAG IVPB ONE (08:04)
[2018-10-29] MEDS ORDERED: Potassium Chloride LIQUID* 20 MEQ PACKET PO ONE (08:05)
[2018-10-29] MEDS: Potassium Chlor TAB* 20 MEQ TAB.ER PO SCH (08:34)
[2018-10-29] MEDS: Ferrous Sulfate TAB* 325 MG PO SCH (08:35)
[2018-10-29] MEDS: Metoprolol Tartrate TAB* 25 MG PO SCH (08:35)
[2018-10-29] MEDS: Fluticasone NASAL SPRAY 50MCG* 16 gm SPRAY BTL BOTH NARES SCH (08:35)
[2018-10-29] MEDS: Magnesium Oxide TAB* 400 MG PO SCH (08:35)
[2018-10-29] MEDS ORDERED: Furosemide IV* 10 MG/ML 2 ML VIAL (20 MG) IV ONE (09:00)
[2018-10-29] MEDS ORDERED: Apixaban* 5 MG TAB PO SCH (09:00)
[2018-10-29] MEDS: KCL 20 MEQ/100 ML IVPREMIX* 20 MEQ/100 ML BAG IV SCH ×3 (09:55→14:32)
[2018-10-29] MEDS: Furosemide IV* 10 MG/ML 2 ML VIAL (20 MG) IV SLOW PU SCH (14:32)
--- NOTE | 2018-10-29 16:20 | ECHO ---
Patient: JOHANNY ANDERSON [facility] Rec#: [id number] : 1930 Date: 10/29/2018 Age: 88y Weight: kg / NaN lbs Sex: M Room#: 440 Admit Date#: 10/28/2018 Type: Inpatient Referring: Hermelinda Ray Reading: Luis Short MD Favor Maker: Suni Rossi RN RDCS CC: Mahamed Doty MD Transthoracic Echocardiogram Indication: CHF BP: 130/43 HR: 46 Rhythm: A-Fib Findings History: HTN, HLD, thyroid disease, prostate cancer S/P radiation, soft systolic murmur Technical Comments: The study quality is good. Left Ventricle: The left ventricular chamber size is mildly dilated. Moderate to severe concentric left ventricular hypertrophy is observed. There is global hypokinesis of the left ventricle with minor regional variation. There is moderately decreased left ventricular systolic function. The estimated ejection fraction is 35-40%. The assessment of diastolic function is non-diagnostic. Left Atrium: The left atrium is severely dilated. Right Ventricle: The right ventricular cavity size is normal. The right ventricular global systolic function is normal. Right Atrium: The right atrial cavity size is severely dilated. Aortic Valve: The aortic valve is trileaflet. The aortic valve leaflets are mildly thickened. There is a trace of aortic regurgitation. There is no evidence of aortic stenosis. Mitral Valve: The mitral valve leaflets are mildly thickened. There is mild to moderate mitral regurgitation. Tricuspid Valve: The tricuspid valve leaflets are normal. There is moderate to severe tricuspid regurgitation. The right ventricular systolic pressure is estimated at 59 mmHg. There is evidence of moderate to severe pulmonary hypertension. Pulmonic Valve: The pulmonic valve appears normal. There is trace to mild pulmonic regurgitation. There is no pulmonic stenosis. Pericardium: There is a small pericardial effusion.The echo-free pericardial rim measures 0.9 cm anteriorly and 0.7 cm posteriorly in the MELO view and 0.4 cm anteriorly and 0.7 cm posteriorly in the PSA view. There is no sign of RV nor RA collapse There are no signs of significant hemodynamic compromise. Aorta: There is mild dilatation of the ascending aorta. There is no dilatation of the aortic arch. There is mild dilatation of the aortic root. Pulmonary Artery: The main pulmonary artery is not well visualized. Venous: The inferior vena cava is dilated. There is less than 50% respiratory change in the inferior vena cava dimension. Conclusions There is moderately decreased left ventricular systolic function. The estimated ejection fraction is 35-40%. There is global hypokinesis of the left ventricle with minor regional variation. Moderate to severe concentric left ventricular hypertrophy is observed. The left ventricular chamber size is mildly dilated. The left atrium is severely dilated. The right atrial cavity size is severely dilated. There is mild to moderate mitral regurgitation. There is moderate to severe tricuspid regurgitation. There is evidence of moderate to severe pulmonary hypertension. There is a small pericardial effusion wiith no signs of significant hemodynamic compromise. There is mild dilatation of the ascending aorta. There is mild dilatation of the aortic root. There is no prior echocardiogram available to compare with at this time. Measurements Name Value Normal Range RVDdMajor (2D) 3.5 cm (2.2 - 4.4) RAd ISD 4CH 7.5 cm (3.4 - 4.9) RA (A4C)W 5 cm (2.9 - 4.6) IVSd (2D) 2.1 cm (0.6 - 1) LVPWd (2D) 1.9 cm (0.6 - 1) LVIDd (2D) 5.5 cm (3.6 - 5.4) LVIDs (2D) 4.4 cm - LV FS (2D) 20 % (25 - 45) Aortic Annulus 1.9 cm (1.4 - 2.6) Ao root diameter (2D) 4 cm (2.1 - 3.5) Ascending Ao 3.5 cm (2.1 - 3.4) Aortic arch 2.9 cm (1.8 - 3.4) LA dimension (AP) 2D 5.6 cm (2.3 - 3.8) LAd ISD 4CH 7.6 cm (2.9 - 5.3) LA ISD 4CH W 5.2 cm (2.5 - 4.5) Name Value Normal Range LA ESV BP (A/L) index 79.5 ml/m2 - Name Value Normal Range MV E-wave Vmax 1 m/sec - MV deceleration time 226 msec - LV septal e' Vmax 0.04 m/sec - LV lateral e' Vmax 0.06 m/sec - LV E:e' septal ratio 25 ratio - LV E:e' lateral ratio 16.7 ratio - Name Value Normal Range AV Vmax 1.5 m/sec - AV VTI 32.7 cm - AV peak gradient 9 mmHg - AV mean gradient 5 mmHg - LVOT Vmax 0.81 m/sec - LVOT VTI 17.9 cm - LVOT peak gradient 3 mmHg - LVOT mean gradient 1 mmHg - ERNST Vmax 0.33 m/sec - Name Value Normal Range TR Vmax 3.3 m/sec - TR peak gradient 44 mmHg - RAP 15 mmHg - RVSP 59 mmHg - IVC diameter 2.3 cm - Name Value Normal Range PV Vmax 0.81 m/sec -
--- NOTE | 2018-10-29 16:56 | PN ---
Subjective Date of Service: 10/29/18 Interval History: Patient is feeling better with diuresis, patient is still SOB with walking. Patient denies CP, N/V, abdominal pain, dysuria, dizziness on standing, or other pain. Discussed at length the possible pathogenesis and treatment for HFrEF with family. Family History: Unchanged from Admission Social History: Unchanged from Admission Past Medical History: Unchanged from Admission Objective Active Medications: Acetaminophen (Tylenol Tab*) 650 mg PO Q4H PRN PRN Reason: FEVER/PAIN Al Hydrox/Mg Hydrox/Simethicone (Maalox Plus*) 30 ml PO Q6H PRN PRN Reason: INDIGESTION Apixaban (Eliquis*) 5 mg PO BID [facility] Last Admin: 10/29/18 08:34 Dose: 5 mg Atorvastatin Calcium (Lipitor*) 20 mg PO BEDTIME [facility] Last Admin: 10/28/18 23:57 Dose: 20 mg Cyclobenzaprine HCl (Flexeril Tab*) 5 mg PO BEDTIME PRN PRN Reason: PAIN Last Admin: 10/28/18 23:55 Dose: 5 mg Docusate Sodium (Colace Cap*) 100 mg PO BID PRN PRN Reason: CONSTIPATION Last Admin: 10/28/18 23:55 Dose: 100 mg Ferrous Sulfate (Ferrous Sulfate Tab*) 325 mg PO DAILY [facility] Last Admin: 10/29/18 08:35 Dose: 325 mg Fluticasone Propionate (Flonase Nasal [place] 50mcg*) 2 spray BOTH NARES DAILY [facility] Last Admin: 10/29/18 08:35 Dose: 2 spray Furosemide (Lasix Iv*) 20 mg IV SLOW PU 0800,1500 [facility] Last Admin: 10/29/18 14:32 Dose: 20 mg Levothyroxine Sodium (Synthroid Tab*) 25 mcg PO DAILY@0600 [facility] Last Admin: 10/29/18 05:41 Dose: 25 mcg Magnesium Oxide (Magox 400 Tab*) 800 mg PO DAILY [facility] Last Admin: 10/29/18 08:35 Dose: 800 mg Mirtazapine (Remeron Tab*) 15 mg PO BEDTIME [facility] Last Admin: 10/28/18 23:56 Dose: 15 mg Ondansetron HCl (Zofran Inj*) 4 mg IV Q4H PRN PRN Reason: NAUSEA/VOMITING Potassium Chloride (Klor Con Er Tab*) 40 meq PO DAILY [facility] Last Admin: 10/29/18 08:34 Dose: 40 meq Senna (Senokot Tab*) 1 tab PO BID PRN PRN Reason: CONSTIPATION Last Admin: 10/28/18 23:53 Dose: 1 tab Vital Signs - 8 hr 10/29/18 10/29/18 10/29/18 09:12 11:24 12:16 Temperature 98.5 F 98.3 F 98.3 F Pulse Rate 74 56 56 Respiratory 16 16 16 Rate Blood Pressure 141/63 140/75 140/75 (mmHg) O2 Sat by Pulse 92 94 94 Oximetry 10/29/18 10/29/18 15:15 15:47 Temperature 98.3 F Pulse Rate 60 Respiratory 16 Rate Blood Pressure 133/63 (mmHg) O2 Sat by Pulse 95 Oximetry Oxygen Devices in Use Now: None Appearance: Patient is an 88yo male who appears stated age and is sitting in the bed in NAD. Eyes: No Scleral Icterus, PERRLA Ears/Nose/Mouth/Throat: NL Teeth, Lips, Gums, Clear Oropharnyx, Mucous Membranes Moist Neck: NL Appearance and Movements; NL JVP, Trachea Midline Respiratory: Symmetrical Chest Expansion and Respiratory Effort, - - Rales in B/ L Lower Lobes. Cardiovascular: NL Sounds; No Murmurs; No JVD, RRR Abdominal: NL Sounds; No Tenderness; No Distention, No Hepatosplenomegaly Lymphatic: No Cervical Adenopathy Extremities: No Clubbing, Cyanosis, - - 1+ B/L LE edema Skin: No Rash or Ulcers, No Nodules or Sclerosis Neurological: Alert and Oriented x 3, NL Sensation, NL Muscle Strength and Tone , - - CN II-XII intact. Result Diagrams: 10/29/18 06:17 10/29/18 06:17 Microbiology and Other Data: Microbiology 10/28/18 20:38 Urine Culture - Final Urine Assess/Plan/Problems-Billing Assessment: Patient is an 88yo male with a PMH for HTN, HLD, prostate cancer, who presented to the ED with LE edema and shortness of breath with exertion. Patient was admitted to the hospital for diuresis and was found to be in new Afib and to have new HFrEF. - Patient Problems (1) Acute HFrEF (heart failure with reduced ejection fraction) Current Visit: Yes Status: Acute Code(s): I50.21 - ACUTE SYSTOLIC ( CONGESTIVE) HEART FAILURE SNOMED Code(s): 437427630 Comment: - New HFrEF, mildly elevated troponin, no acute ischemic changes on EKG to indicate acute OR - May need ischemic workup - Continue gentle diuresis - Start Lisinopril, Patient did not tolerate BB - Cardiology consult pending. - pHTN likely related to Fluid overload and HF (2) Afib Current Visit: Yes Status: Acute Code(s): I48.91 - UNSPECIFIED ATRIAL FIBRILLATION SNOMED Code(s): 94052320 Comment: - New onselt afib, rate controlled without medication - Started eliquis - Unlikely cause of cardiomyopathy due to rate control - May benefit from cardioversion, but rhythm control would likely be difficult. (3) HTN (hypertension) Current Visit: Yes Status: Acute Code(s): I10 - ESSENTIAL (PRIMARY) HYPERTENSION SNOMED Code(s): 75838128 Comment: - Normotensive, start lisinopril - Use caution with diuresis. (4) HLD (hyperlipidemia) Current Visit: Yes Status: Acute Code(s): E78.5 - HYPERLIPIDEMIA, UNSPECIFIED SNOMED Code(s): 71321731 Comment: - LDL under 70 - Continue lipitor. (5) Full code status Current Visit: Yes Status: Acute Code(s): Z78.9 - OTHER SPECIFIED HEALTH STATUS SNOMED Code(s): 844077221 (6) DNR (do not resuscitate) Current Visit: Yes Status: Acute Status and Disposition: Inpatient for acute HFrEF and AFib, likely 1-2 more days.
[2018-10-29] MEDS: Lisinopril TAB* 5 MG PO SCH (18:12)
[2018-10-29] MEDS: Atorvastatin* 20 MG TAB PO SCH (20:35)
[2018-10-29] MEDS: Mirtazapine TAB* 15 MG PO SCH (20:35)
--- NOTE | 2018-10-30 00:05 | CONS ---
CC: Dr. Mahamed Doty CARDIOLOGY CONSULTATION: DATE OF CONSULT: 10/29/18 REFERRAL PHYSICIAN: FARZANA Chambers of . REASON FOR CARDIOLOGY CONSULT: Cardiomyopathy and shortness of breath. HISTORY OF PRESENT ILLNESS: I was kindly asked to see this patient, admitted with systolic congestive heart failure with shortness of breath and fatigue. Patient is accompanied by his , son and [id number] at his bedside. The patient is noted for 3 to 4 months of being short of breath, fatigued and palpitations at night. His peripheral edema was becoming worse and so he was recommended to present to the emergency room. Here, he was found to have systolic congestive heart failure as well as atrial fibrillation of uncertain timing in terms of onset. He has responded to diuretics. The patient himself does note that he has had some chest tightness, but no unstable anginal type symptoms. He does note palpitations for the past 3 to 4 months when lying down. PAST MEDICAL HISTORY: Includes: 1. History of prostate cancer, status post radiation, as well as urethral stricture, followed by Dr. Ortiz. 2. Hypertension. 3. Hyperlipidemia. 4. Hypothyroidism. 5. Arthritis. 6. Chronic left shoulder pain. MEDICATIONS: Outpatient medications include: 1. Synthroid. 2. Flexeril. 3. Mirtazapine. 4. Iron. 5. Centrum Silver. 6. Potassium. 7. Norvasc 10 mg once a day. 8. Lipitor 20 mg once a day. 9. Flonase. ALLERGIES: To medications are CIPROFLOXACIN, which causes hives. He denies shrimp, seafood or dye allergy. FAMILY HISTORY: His brother of a heart attack at age 72. His paternal grandfather had a heart attack. His father had a stroke. No family history of cancer nor diabetes. 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 He left to [place] in 1948 to move to the [place]. He quit smoking cigarettes in 1962 after having smoked for about 15 or so years. He is not doing exercise now and notes significant pain in his feet from bunions. REVIEW OF SYSTEMS: He denies personal history of stroke. He has a history of prostate cancer, followed by Dr. Ortiz of . He denies vomiting blood, coughing up blood, bright red blood per rectum, bleeding stomach ulcers. He has had renal calculi greater than 20 years ago. He denies cholelithiasis. He has a history of asthma. He denies COPD, pneumonia, tuberculosis, sleep apnea, home oxygen use, diabetes. He does have hypertension. He has noted his heart skipping for many years. He denies prior bypass surgery or other heart surgeries. He denies psychiatric illnesses, lupus, psoriasis, seizures, Parkinson disease, myasthenia gravis. He is hypothyroid. He had history of liver parasites 20 years ago, which have been resolved. He denies kidney disorders. He has noted significant edema recently, which has improved since being admitted and placed on Lasix here. He denies heartburn symptoms. All other review of systems are negative except as described above. PHYSICAL EXAM: Height 5 feet 5, weight 152 pounds. Temperature 98.3 degrees Fahrenheit, pulse is 60. Apparently when he received beta-christian earlier, his heart rate went into the 40s, O2 saturation 95%, blood pressure 133/63. On general exam, he is a pleasant elderly gentleman, in no acute distress. HEENT: Shows cranium is normocephalic and atraumatic. He has moist mucosal membranes. Neck veins are not distended. There are no carotid bruits. Visible skin warm and well perfused. Affect is appropriate. He appears oriented. Mild kyphoscoliosis on back exam, likely age related. Lungs are clear to auscultation. No wheezes, no rales. Cardiac Exam: S1 and S2. Irregular rate, controlled. Soft holosystolic murmur heard without radiation. There is no rub, no gallop. PMI is nondisplaced. Abdomen: Soft, nondistended, appears benign. Extremities: Without significant edema. Pulses appear grossly intact. 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 The patient had an EKG on 07/08/04, which demonstrated sinus rhythm with 1 PAC. Patient had a transthoracic echocardiogram earlier today, which showed moderately depressed left ventricular ejection fraction of 35% to 40% with severe biatrial dilatation, [id number] tricuspid regurgitation, mild-to- moderate mitral regurgitation, [id number] pulmonary hypertension, mild dilatation of the aortic root and ascending aorta. No prior echocardiogram available to compare with. Sodium 142, potassium 3, chloride 103, bicarbonate 32, BUN 11, creatinine 0.83, magnesium 1.8, troponin 0.04 x2, BNP 633 pg/mL, TSH 10.78, INR 1.24. White blood cell count 3.9, hematocrit 35, platelet count 151. IMPRESSION: Mr. Christensen is a pleasant 88-year-old elderly gentleman with a history of hypertension, admitted with 3 to 4 months of fatigue, shortness of breath, found to have atrial fibrillation of unclear onset in terms of timing and moderate cardiomyopathy. He is responding to diuresis. He does appear to have tachy-omid features, as he became quite bradycardic earlier in response to low dose beta-christian 12.5 mg when his heart rate went into the 40s. RECOMMENDATIONS: Given elevated CHADS2-VAScF score greater than 2, I do recommend NOAC therapy (patient's prefers daily dosing as she takes Xarelto herself, so we recommend changing the patient from Eliquis to Xarelto). We will avoid beta-christian given significant bradycardia. Continue lisinopril, Lasix as has been started here and I think it is reasonable to start him on Aldactone 25 mg once a day with close followup of electrolytes. The patient and his have requested to followup with myself as an outpatient after his discharge which I am happy to make arrangements for. At that time I can make arrangements for an outpatient ischemic evaluation and outpatient cardioversion as felt appropriate. Other management as per the hospitalist medicine service including electrolyte repletion and thyroid evaluation and management. I have discussed case with Mr. Briggs Dario of the hospitalist medicine service. The above have been discussed in detail with the patient, his , son and [id number] and they are in agreement with these recommendations. Dear Dario, many thanks for this kind cardiac consultation opportunity. Please do not hesitate to contact me if you have any questions or concerns regarding the patient's cardiovascular consultative care. [id number]/CPS #: [id number] MTDD
[2018-10-30] MEDS: Levothyroxine TAB* 25 MCG TAB PO SCH (05:10)
[2018-10-30 06:37] LABS: ABS Basophils 0 10^3/ul (0-0.2); ABS Eosinophils 0.2 10^3/ul (0-0.6); ABS Monocytes 0.4 10^3/ul (0-0.8); ABS Neutrophils 2.9 10^3/ul (1.5-7.7); ABS Nucleated RBC 0 10^3/ul; Eosinophil % 5.2 %; Hematocrit 36 % (36-46); Hemoglobin 12.1 g/dL (14.0-18.0); Lymphocyte % 21.8 %; Mean Corpuscular HGB Conc 34 g/dL (31-36); Mean Corpuscular Hemoglobin 31 pg (27-31); Mean Corpuscular Volume 92 fL (80-94); Mean Platelet Volume 9.1 fL (7.4-10.4); Nucleated Red Blood Cells % 0; Platelet Count 166 10^3/uL (150-450); Red Blood Count 3.87 10^6 /uL (4.18-5.48); Red Cell Distribution Width 16 % (10.5-15); White Blood Count 4.6 10^3/uL (3.5-10.8)
[2018-10-30 06:56] LABS: BUN/Creatinine Ratio 12.9 (8-20); Calcium 8.5 mg/dL (8.6-10.3); EGFR African American 102.9 (>60); EGFR Non-African American 85.1 (>60); Magnesium 1.9 mg/dL (1.9-2.7); Potassium 3.5 mmol/L (3.5-5.0)
[2018-10-30] MEDS: Lisinopril TAB* 5 MG PO SCH (07:49)
[2018-10-30] MEDS: Potassium Chlor TAB* 20 MEQ TAB.ER PO SCH ×3 (07:51→20:31)
[2018-10-30] MEDS: Magnesium Oxide TAB* 400 MG PO SCH (07:51)
[2018-10-30] MEDS: Spironolactone TAB* 25 MG PO SCH (07:52)
[2018-10-30] MEDS: Ferrous Sulfate TAB* 325 MG PO SCH (07:52)
[2018-10-30] MEDS: Furosemide IV* 10 MG/ML 2 ML VIAL (20 MG) IV SLOW PU SCH (07:52)
[2018-10-30] MEDS: Fluticasone NASAL SPRAY 50MCG* 16 gm SPRAY BTL BOTH NARES SCH (08:12)
--- NOTE | 2018-10-30 15:06 | PN ---
Subjective Date of Service: 10/30/18 Interval History: Patient is feeling better today. Patient has decreased LE edema and feels as if his legs are back to their normal caliber. Patient denies dizziness on standing , CP, SOB, F/C, N/V, dysuria, abdominal pain, ALLRED. Family History: Unchanged from Admission Social History: Unchanged from Admission Past Medical History: Unchanged from Admission Objective Active Medications: Acetaminophen (Tylenol Tab*) 650 mg PO Q4H PRN PRN Reason: FEVER/PAIN Al Hydrox/Mg Hydrox/Simethicone (Maalox Plus*) 30 ml PO Q6H PRN PRN Reason: INDIGESTION Atorvastatin Calcium (Lipitor*) 20 mg PO BEDTIME [facility] Last Admin: 10/29/18 20:35 Dose: 20 mg Cyclobenzaprine HCl (Flexeril Tab*) 5 mg PO BEDTIME PRN PRN Reason: PAIN Last Admin: 10/28/18 23:55 Dose: 5 mg Docusate Sodium (Colace Cap*) 100 mg PO BID PRN PRN Reason: CONSTIPATION Last Admin: 10/28/18 23:55 Dose: 100 mg Ferrous Sulfate (Ferrous Sulfate Tab*) 325 mg PO 1200 [facility] Fluticasone Propionate (Flonase Nasal [place] 50mcg*) 2 spray BOTH NARES DAILY [facility] Last Admin: 10/30/18 08:12 Dose: 2 spray Magnesium Sulfate/Dextrose (Magnesium Sulfate 1 Gm Iv*) 1 gm in 100 mls @ 200 mls/hr IV ONCE ONE Stop: 10/30/18 15:59 Levothyroxine Sodium (Synthroid Tab*) 25 mcg PO DAILY@0600 [facility] Last Admin: 10/30/18 05:10 Dose: 25 mcg Lisinopril (Prinivil Tab*) 2.5 mg PO DAILY [facility] Last Admin: 10/30/18 07:49 Dose: 2.5 mg Magnesium Oxide (Magox 400 Tab*) 800 mg PO DAILY [facility] Last Admin: 10/30/18 07:51 Dose: 800 mg Mirtazapine (Remeron Tab*) 15 mg PO BEDTIME [facility] Last Admin: 10/29/18 20:35 Dose: 15 mg Ondansetron HCl (Zofran Inj*) 4 mg IV Q4H PRN PRN Reason: NAUSEA/VOMITING Potassium Chloride (Klor Con Er Tab*) 40 meq PO DAILY [facility] Last Admin: 10/30/18 07:51 Dose: 40 meq Potassium Chloride (Klor Con Er Tab*) 20 meq PO BID [facility] Stop: 10/30/18 21:01 Last Admin: 10/30/18 10:35 Dose: 20 meq Rivaroxaban (Xarelto(*)) 20 mg PO QPM [facility] Senna (Senokot Tab*) 1 tab PO BID PRN PRN Reason: CONSTIPATION Last Admin: 10/28/18 23:53 Dose: 1 tab Spironolactone (Aldactone Tab*) 25 mg PO DAILY [facility] Last Admin: 10/30/18 07:52 Dose: 25 mg Torsemide (Demadex*) 20 mg PO DAILY [facility] Vital Signs - 8 hr 10/30/18 10/30/18 08:00 11:02 Temperature 98.4 F Pulse Rate 60 Respiratory 16 20 Rate Blood Pressure 124/52 (mmHg) O2 Sat by Pulse 98 Oximetry Oxygen Devices in Use Now: None Appearance: Patient is an 88yo male who appears stated age and is sitting in the bed in [facility]. Eyes: No Scleral Icterus, PERRLA Ears/Nose/Mouth/Throat: NL Teeth, Lips, Gums, Clear Oropharnyx, Mucous Membranes Moist Neck: NL Appearance and Movements; NL JVP, Trachea Midline Respiratory: Symmetrical Chest Expansion and Respiratory Effort, - - Slight rales in bases. Cardiovascular: NL Sounds; No Murmurs; No JVD, RRR, No Edema Abdominal: NL Sounds; No Tenderness; No Distention, No Hepatosplenomegaly Lymphatic: No Cervical Adenopathy Extremities: No Edema, No Clubbing, Cyanosis Skin: No Rash or Ulcers, No Nodules or Sclerosis Neurological: Alert and Oriented x 3, NL Sensation, NL Muscle Strength and Tone , - - CN II-XII intact. Result Diagrams: 10/30/18 06:16 10/30/18 06:16 Microbiology and Other Data: Microbiology 10/28/18 20:38 Urine Culture - Final Urine Assess/Plan/Problems-Billing Assessment: Patient is an 88yo male with a PMH for HTN, HLD, prostate cancer, who presented to the ED with LE edema and shortness of breath with exertion. Patient was admitted to the hospital for diuresis and was found to be in new Afib and to have new HFrEF. - Patient Problems (1) Acute HFrEF (heart failure with reduced ejection fraction) Current Visit: Yes Status: Acute Code(s): I50.21 - ACUTE SYSTOLIC ( CONGESTIVE) HEART FAILURE SNOMED Code(s): 466747720 Comment: - New HFrEF, mildly elevated troponin, no acute ischemic changes on EKG to indicate acute OR - Appreciate Cardiology input - Continue gentle diuresis, transition to oral torsemide - Start Lisinopril and spironolactone, Patient did not tolerate BB - pHTN likely related to Fluid overload and HF (2) Afib Current Visit: Yes Status: Acute Code(s): I48.91 - UNSPECIFIED ATRIAL FIBRILLATION SNOMED Code(s): 49082173 Comment: - New onselt afib, rate controlled without medication - Started eliquis - Unlikely cause of cardiomyopathy due to rate control - May benefit from cardioversion, but rhythm control would likely be difficult. - Evaluate options outpatient with cardiology. (3) HTN (hypertension) Current Visit: Yes Status: Acute Code(s): I10 - ESSENTIAL (PRIMARY) HYPERTENSION SNOMED Code(s): 66063028 Comment: - Normotensive, start lisinopril and spironolactone - Use caution with diuresis. (4) HLD (hyperlipidemia) Current Visit: Yes Status: Acute Code(s): E78.5 - HYPERLIPIDEMIA, UNSPECIFIED SNOMED Code(s): 57010399 Comment: - LDL under 70 - Continue lipitor. (5) Full code status Current Visit: Yes Status: Acute Code(s): Z78.9 - OTHER SPECIFIED HEALTH STATUS SNOMED Code(s): 219343892 (6) DNR (do not resuscitate) Current Visit: Yes Status: Acute Status and Disposition: Inpatient for acute HFrEF and AFib, Likely discharge tomorrow if potassium normal.
[2018-10-30] MEDS ORDERED: Magnesium Sulfate 1 GM IV* 1 GM/100 ML BAG IV ONE (15:30)
[2018-10-30] MEDS ORDERED: Rivaroxaban TAB(*) 20 MG TAB PO SCH (18:00)
[2018-10-30] MEDS: Mirtazapine TAB* 15 MG PO SCH (20:30)
[2018-10-30] MEDS: Atorvastatin* 20 MG TAB PO SCH (20:30)
--- NOTE | 2018-10-31 00:52 | DS ---
CC: Dr. Mahamed Doty; Dr. Luis Short * DISCHARGE SUMMARY: DATE OF ADMISSION: 10/28/18 DATE OF DISCHARGE: 10/31/18 PRIMARY CARE PROVIDER: Mahamed Doty MD. MY ATTENDING WHILE IN THE HOSPITAL: Mohit Glass MD.* (DICTATED BY FARZANA JEAN-BAPTISTE) OUTPATIENT CLUBHOUSE MANAGER: Luis Short MD. PRIMARY DISCHARGE DIAGNOSES: 1. New onset atrial fibrillation. 2. Newly diagnosed heart failure with reduced ejection fraction of 35% to 40%. 3. Congestive heart failure exacerbation. SECONDARY DISCHARGE DIAGNOSES: 1. History prostate cancer, status post resection and radiation. 2. History of urethral stricture. 3. Hypertension. 4. Hyperlipidemia. 5. Hypothyroidism. 6. Arthritis. 7. Chronic left shoulder pain. STUDIES DONE WHILE IN THE HOSPITAL: EKG from 10/28/18, shows atrial fibrillation, frequent PVCs, rate of 70, QTc of 462, right axis deviation, poor R wave progression, incomplete right bundle branch block. Repeat EKG shows no significant changes. Repeat EKG from 10/29/18 shows rate of 64, QTc of 436, no other significant changes, persistent ectopy. Chest x-ray from 10/28/18 shows cardiomegaly consistent with CHF and interstitial edema. Transthoracic echocardiogram from 10/28/18 read as moderately decreased left ventricular systolic function, estimated ejection fraction 35% to 40%. Global hypokinesis of the left ventricle. Lhqgudci-el-eoyosr concentric left ventricular hypertrophy is observed. Left ventricular chamber size is mildly dilated. Left atrium is severely dilated. Right atrial cavity size is severely dilated. [id number]-[id number] mitral regurgitation. Moderate-to severe tricuspid regurgitation. Evidence of cnotyxgx-pj-qtmcxk pulmonary hypertension. Small pericardial effusion with no signs of significant hemodynamic compromise. Mild dilatation of the ascending aorta. Mild dilatation of the aortic root. No prior echocardiogram to compared with at this time. MEDICATIONS AT DISCHARGE: 1. Atorvastatin 20 mg p.o. daily. 2. Multivitamin 1 tab p.o. daily. 3. Ferrous sulfate 65 mg p.o. daily. 4. Fluticasone 2 sprays both nares daily. 5. Mirtazapine 15 mg p.o. daily. 6. Refresh Optive eye drops, 1 drop to both eyes daily as needed. 7. Levothyroxine 25 mcg p.o. daily. 8. Cyclobenzaprine 10 mg p.o. daily as needed. 9. Tylenol 650 mg p.o. q.4 hours as needed. 10. Lisinopril 2.5 mg p.o. daily. 11. Magnesium oxide 800 mg p.o. daily. 12. Xarelto 20 mg p.o. q. p.m. 13. Spironolactone 25 mg p.o. daily. 14. Torsemide 20 mg p.o. daily. Medications discontinued at discharge: 1. Amlodipine 10 mg p.o. daily. 2. Ibuprofen 400 mg p.o. daily as needed. 3. Tessalon 100 mg p.o. t.i.d. as needed. HOSPITAL COURSE: This is a brief summary of the patient's presentation. For more details, please see the history and physical from Dr. Hermelinda Ray on . In brief, the patient is an 88-year-old male with past medical history significant for prostate cancer, hypertension, and hyperlipidemia, who presented to the emergency department after he was referred from his primary care doctor's office for 2 to 3 weeks of worsening shortness of breath with cough, wheezing, and lower extremity edema, as well as orthopnea. The patient had no fever or other symptoms. The patient has chronic urinary frequency. The patient was referred to the hospitalist for admission. The patient was found to be in new onset AFib. The patient was diuresed gently with initially 20 mg of Lasix twice daily. The patient also had elevated troponin, elevated BNP, with no ischemic changes on EKG. The patient had elevated TSH, but normal free T4. The patient had an echocardiogram read as above. The patient's symptoms improved dramatically with diuresis. The patient felt that he returned to his normal state of bunny 2 days into this admission. The patient was seen in consultation with Dr. Luis Short who recommended outpatient ischemic workup and rate control and anticoagulation for patient's AFib. The patient was, upon admission, started on metoprolol, which lowered his heart rate into the 30s and felt the patient was asymptomatic. This was stopped. The patient was then started on lisinopril and Aldactone. The patient's potassium was low while he was in the hospital and he was supplemented aggressively. The patient continued to feel better and was able to ambulate around the unit on 10/30/18. The patient had no signs of orthostatic hypotension or dehydration. The patient was transitioned to 20 mg of torsemide daily and discharged on . The patient was stable and amenable for discharge on 10/31/18, pending normal potassium and electrolyte levels. DISCHARGE PLAN: The patient will be discharged to home. The patient will have followup with primary care provider in 1 week for general medical management and for a repeat basic metabolic panel to assess for hypokalemia on new medications, with initiation of lisinopril and spironolactone as well as torsemide. The patient should weigh himself initially daily and call his primary care provider for a net weight gain of grater than 3 pounds or any shortness of breath, significant worsening of lower extremity swelling or dyspnea on exertion. The patient should follow up with Dr. Luis Short within 1 month for an ischemic evaluation and consideration for cardioversion. The patient should return to the hospital for chest pain, severe shortness of breath , passing out, lack of urine output or other alarming symptoms. The patient will have a repeat TSH in 3 months with his primary care provider and his levothyroxine dose should be adjusted at that time based on those results. The patient is mildly anemic with an elevated RDW. The patient should have consideration for escalation of his iron therapy. The patient should engage in activity as tolerated and a heart-healthy diet. Decaf is okay, with low sodium and no alcohol. TIME SPENT: Approximately 60 minutes were spent in the discharge of this patient, 30 minutes of which were spent [id number] with the patient obtaining history and physical and discussing treatment plan. FARZANA JEAN-BAPTISTE [id number]/[facility] #: [id number] MARIBEL
[2018-10-31] MEDS: Levothyroxine TAB* 25 MCG TAB PO SCH (05:12)
[2018-10-31 06:06] LABS: BUN/Creatinine Ratio 16.3 (8-20); Calcium 8.7 mg/dL (8.6-10.3); EGFR African American 101.6 (>60); EGFR Non-African American 83.9 (>60); Potassium 3.8 mmol/L (3.5-5.0)
[2018-10-31 07:54] VITALS: BP 149/78
[2018-10-31] MEDS: Magnesium Oxide TAB* 400 MG PO SCH (07:56)
[2018-10-31] MEDS: Spironolactone TAB* 25 MG PO SCH (07:56)
[2018-10-31] MEDS: Potassium Chlor TAB* 20 MEQ TAB.ER PO SCH (07:57)
[2018-10-31] MEDS: Fluticasone NASAL SPRAY 50MCG* 16 gm SPRAY BTL BOTH NARES SCH (07:57)
[2018-10-31] MEDS: Lisinopril TAB* 5 MG PO SCH (07:57)
[2018-10-31] MEDS ORDERED: Torsemide TAB* 20 MG PO SCH (09:00)
[2018-10-31] MEDS ORDERED: Ferrous Sulfate TAB* 325 MG PO SCH (12:00)
--- NOTE | 2018-10-31 13:19 | DS ---
AMENDEDM REPORT NOW INCLUDES DESIGNATED COSIGNER DISCHARGE SUMMARY: ADDENDUM: DATE OF ADMISSION: 10/28/18 DATE OF DISCHARGE: 10/31/18 PROVIDER: Baudilio Castellon NP. ATTENDING PHYSICIAN: Dr. Glass * (report dictated by Baudilio Castellon NP). DISCHARGE ADDENDUM: Mr. Mercer was seen this morning prior to his discharge , which was prepared last evening by FARZANA Angela, with anticipation of discharge this morning. I evaluated the patient this morning. He was found to be alert and oriented x3 sitting up in a chair, in no acute distress. He states he feels ready to go home and feels "much, much, much, much, much better than when he came in." In discussion about his TSH of 10, the patient does report he takes his daily medications. This could be in the setting of acute illness. Discussed with Dr. Glass who recommended continue current dosage and follow up thyroid panel testing per PCP in a few weeks. As well, he was instructed to stay on the same potassium supplementation dosage as prior to hospitalization which was 40 mEq daily. During this hospitalization, he has had spironolactone as well as torsemide added to his discharge medication regimen. This was explained that one is potassium sparing and one is potassium wasting and at this point, we will continue his potassium supplementation as prior to hospitalization as he did have noted hypokalemia, which was replaced with supplementation throughout hospitalization. At this point, his potassium this morning is 3.8. He was instructed to have a BMP this with results to his primary care provider, Dr. Doty. I have also added on magnesium glycinate 100 mg daily to his daily regimen. The patient was instructed to weigh himself daily. Greater than 3-pound weight gain, instructed the patient to call his primary care provider. REVIEW OF SYSTEMS: A 14-point review of systems was performed. All the pertinent positives and negatives are mentioned above. The patient denies any complaints at this time. He denies shortness of breath, orthopnea, or lower extremity edema. Denies wheezing, cough, chest pain. No fevers or chills. Feels well and ambulating. PHYSICAL EXAMINATION: Vital signs: Temperature 98.3, heart rate 67, respirations 16, O2 sat 94% on room air, blood pressure 144/60. General appearance: A well- developed 88-year-old male sitting up in a chair, alert and oriented x3, in no acute distress. HEENT: Head is normocephalic, atraumatic. Pupils equal and reactive to light. Cardiac: S1, S2. Regular rate and rhythm. No lower extremity edema noted. Lungs: Clear to auscultation bilaterally. Good aeration throughout. Abdomen: Soft, nontender, nondistended. Normal bowel sounds throughout. Extremities: Warm, pink, dry. No clubbing, cyanosis, or edema noted. Neuro: Alert and oriented x3. No focal deficits noted. DISCHARGE PLAN: Please see Chester Bishop's discharge summary for full details. Please note there is recommendation for an ischemic evaluation in consideration for cardioversion and will need to follow up with Dr. Short which has been scheduled for a few weeks per Dr. Short - his office will call the patient with a time and date TIME SPENT: Approximately 30 minutes were spent on this discharge addendum. BAUDILIO CASTELLON NP [id number]/[facility] #: [id number] [facility]
== END 2018-10-31 11:36 | disposition home or self-care (01) | DRG 291 ==
LOC: ED 19:26 → MEDTELE 21:12 → OBSVTOIN 10-29 15:14
PROVIDERS: ADMIT Pediatrics; ATTEND Internal Medicine
DX: I11.0 Hypertensive heart disease with heart failure (principal); I50.21 Acute systolic (congestive) heart failure; I48.91 Unspecified atrial fibrillation; I27.20 Pulmonary hypertension, unspecified; I08.1 Rheumatic disorders of both mitral and tricuspid valves; E03.9 Hypothyroidism, unspecified; E78.5 Hyperlipidemia, unspecified; M19.90 Unspecified osteoarthritis, unspecified site; Z66 Do not resuscitate; M25.512 Pain in left shoulder; R35.0 Frequency of micturition; R74.8 Abnormal levels of other serum enzymes; N35.919 Unspecified urethral stricture, male, unspecified site; E87.6 Hypokalemia; I49.3 Ventricular premature depolarization; Z85.46 Personal history of malignant neoplasm of prostate; Z92.3 Personal history of irradiation; Z79.899 Other long term (current) drug therapy; Z88.1 Allergy status to other antibiotic agents; Z87.891 Personal history of nicotine dependence; Z82.49 Family history of ischemic heart disease and other diseases of the circulatory system; Z82.3 Family history of stroke
CPT/HCPCS: 36415; 71045; 80048; 80053; 80061; 81003; 81015; 83735; 83880; 84439; 84443; 84484; 85025; 85610; 85730; 87086; 93005; 93306; 99284; A9270-GY; J1650; J1940; J3475; J3480